=== PATIENT | female | born 1995 | race Two or more races ===

== ENCOUNTER 2023-09-30 04:42 | Emergency (ER) | payer OTHER ==
[~2023-09-30] VITALS: Ht 160 cm; Wt 108.9 kg
[2023-09-30 06:49] LABS: PH,URINE 6.5 (5.0-8.0); URINE APPEARANCE Clear; URINE BILIRRUBIN Negative (NEGATIVE); URINE BLOOD Negative; URINE COLOR Yellow; URINE GLUCOSE Negative (NEGATIVE); URINE LEUKOCYTE Trace; URINE NITRATE Negative; URINE PROTEIN Negative (NEGATIVE); URINE UROBILINOGEN 0.2 E.U./dl
[2023-09-30 06:52] LABS: URINE BACTERIA 1712.1 uL (0.0-1933); URINE EPITHELIAL CELLS 50.3 uL (0.0-38.8); URINE RBC 3.1 uL (0.0-20.8); URINE WBC 29.5 uL (0.0-23.2)
[2023-09-30 06:54] LABS: HEMATOCRIT 35.2 % (36.0-45.00); HEMOGLOBIN 11.6 g/dL (12.0-15.00); MEAN CELL VOLUME 83.2 fL (80.00-100.00); MEAN CORPUSCULAR HEMOGLOBIN 27.3 pg (27.00-32.0); MEAN CORPUSCULAR HGB CONC 32.8 g/dl (32.0-36.0); PLATELET COUNT 405 K/uL (150-450); RED BLOOD COUNT 4.24 M/uL (4.00-6.00); RED CELL DISTRIBUTION WIDTH 13.7 % (11.5-14.5)
== END 2023-09-30 10:51 | disposition home or self-care (01) ==
LOC: ER 04:42
PROVIDERS: General Practice
DX: O20.9 Hemorrhage in early pregnancy, unspecified (principal); Z3A.09 9 weeks gestation of pregnancy; Z88.0 Allergy status to penicillin

== ENCOUNTER 2023-10-07 06:44 | Day surgery (SDC) | payer OTHER ==
[~2023-10-07] VITALS: Ht 162.6 cm; Wt 113.4 kg
[2023-10-07 03:48] LABS: HEMATOCRIT 34.4 % (36.0-45.00); HEMOGLOBIN 11.7 g/dL (12.0-15.00); MEAN CELL VOLUME 81.2 fL (80.00-100.00); MEAN CORPUSCULAR HEMOGLOBIN 27.5 pg (27.00-32.0); MEAN CORPUSCULAR HGB CONC 33.9 g/dl (32.0-36.0); PLATELET COUNT 385 K/uL (150-450); RED BLOOD COUNT 4.24 M/uL (4.00-6.00); RED CELL DISTRIBUTION WIDTH 14.1 % (11.5-14.5)
[2023-10-07 03:56] LABS: URINE APPEARANCE Turbid; URINE BILIRRUBIN Small (NEGATIVE); URINE BLOOD Large; URINE COLOR Red; URINE GLUCOSE Negative (NEGATIVE); URINE LEUKOCYTE Moderate; URINE NITRATE Positive; URINE UROBILINOGEN 0.2 E.U./dl
[2023-10-07 03:57] LABS: URINE BACTERIA 944.9 uL (0.0-1933); URINE EPITHELIAL CELLS 11.4 uL (0.0-38.8); URINE WBC 49.9 uL (0.0-23.2)
[2023-10-07 03:57] LABS: PARTIAL THROMBOPLASTIN TIME 26.1 SECONDS (22.0-34.0); PROTHROMBIN TIME 10.5 SECONDS (9.0-11.5)
[2023-10-07 04:15] LABS: URINE PROTEIN 100 (NEGATIVE); URINE RBC > 10558.9 uL (0.0-20.8)
[2023-10-07 04:30] LABS: CALCIUM 8.9 mg/dL (8.5-10.1); CREATININE SERUM 0.8 mg/dL (0.55-1.02); GFR 84.22; POTASSIUM 3.52 mEq/L (3.5-5.1)
[~2023-10-07 06:44] MED LIST: FOLIC ACID20 MG; PRENA1 TRUE CO1 EACH
== END 2023-10-07 20:35 | disposition home or self-care (01) ==
LOC: ER 06:44 → CIR.AMB 06:44 → O/R 06:44 → SEC-K 06:44 → O/R 09:23 → SEC-K 09:23 → EDSTATUS 12:30 → CIR.AMB 20:35 → O/R 20:35
PROVIDERS: ATTEND General Practice
DX: O03.4 Incomplete spontaneous abortion without complication (principal); O72.2 Delayed and secondary postpartum hemorrhage; Z20.822 Contact with and (suspected) exposure to COVID-19; Z88.0 Allergy status to penicillin